=== PATIENT | male | born 1970 | race Caucasian/White ===

== ENCOUNTER 2023-12-10 17:43 | Emergency (ER) | payer MEDICAID, OTHER, SELFPAY ==
[2023-12-10 17:50] VITALS: BP 171/95; PULSE 82; RESP 18; TEMP 36.7; O2SAT 98; BMI 29.5
[2023-12-10 20:09] VITALS: BP 155/95; PULSE 55; RESP 18; O2SAT 99
[2023-12-10 20:42] VITALS: PULSE 73; O2SAT 97
[2023-12-10 20:45] VITALS: BP 155/105; PULSE 74; O2SAT 98
--- NOTE | 2023-12-10 20:59 | ED.EYEPROB ---
HPI - Eye Problem General Chief complaint: Eye Problems Stated complaint: problems with lt eye Time Seen by Provider: 12/10/23 20:10 Source: patient Mode of arrival: Ambulatory History of Present Illness HPI Narrative: 53-year-old male presents for 1 day of left eye redness and purulent drainage. States that began this morning with mild redness, but quickly progressed to crusting discharge. Denies use of glasses or contacts, denies vision changes, denies pain or photophobia Related Data Previous Rx's Medication Instructions Recorded polymyxin B sulfate 10,000 1 drp EYE-LEFT Q3H 7 days #10 mL 12/10/23 unit-trimethoprim 1 mg/mL eye drops Allergies Allergy/AdvReac Type Severity Reaction Status Date / Time No Known Drug Allergies Allergy Verified 12/10/23 17:54 Patient History tobacco type: cigarettes alcohol intake frequency: a few times a week Substance Use Type: marijuana and methamphetamine Exam Initial Vital Signs Initial Vital Signs: Vital Signs Temperature 98.0 F 12/10/23 17:50 Pulse Rate 82 12/10/23 17:50 Respiratory Rate 18 12/10/23 17:50 Blood Pressure 171/95 H 12/10/23 17:50 Pulse Oximetry 98 12/10/23 17:50 Oxygen Delivery Method Room Air 12/10/23 17:50 Const: Awake, alert, no acute distress, nontoxic appearing Eye: PERRL, EOMI, L eye with extensive conjunctival injection and crusting over lashes Skin: Warm, Dry, intact, no rashes Neuro: AO x3, CN II-XII grossly intact, moves all extremities Course Orders Ordered: Discontinued Medications Erythromycin (Erythromycin Ophth 1 Gm Oint) 1 applic EYE-LEFT NOW ONE Stop: 12/10/23 21:01 Last Admin: 12/10/23 21:05 Dose: 1 applic Documented By: HEATH Vital Signs Vital signs: Vital Signs - 8 hr 12/10/23 17:50 12/10/23 20:09 12/10/23 20:42 Temperature 98.0 F Pulse Rate 82 55 L 73 Respiratory Rate 18 18 Blood Pressure 171/95 H 155/95 H Pulse Oximetry 98 99 97 Oxygen Delivery Method Room Air Room Air 12/10/23 20:45 12/10/23 20:45 12/10/23 21:00 Temperature Pulse Rate 74 70 Respiratory Rate Blood Pressure 155/105 H Pulse Oximetry 98 98 Oxygen Delivery Method Room Air 12/10/23 21:01 12/10/23 21:01 Temperature Pulse Rate 74 Respiratory Rate Blood Pressure 167/100 H Pulse Oximetry 98 Oxygen Delivery Method Room Air MDM - Eye Problem Differential Diagnosis Differential diagnosis: Likely corneal abrasion, conjunctivitis and hyphema MDM Narrative Medical decision making narrative: One day of symptoms consistent with bacterial conjunctivitis. No pain or photophobia, eyelids everted, no foreign body seen. Patient given erythromycin ointment tonight and polymyxin drops sent to pharmacy of choice. Patient counseled on the importance of completing therapy and recommended close follow up with eye doctor Discharge Plan Departure Patient Disposition: Home Clinical Impression: Acute bacterial conjunctivitis of left eye Instructions: DI for Conjunctivitis Activity Restrictions/Additional Instructions: You have bacterial conjunctivitis, or pinkeye, in your left eye. Use the erythromycin ointment tonight, tomorrow start taking the antibiotic eyedrops as prescribed. Any time you touch her eyes you need to wash your hands with soap and water. If you notice changes in your vision or worsening despite antibiotic drops you may return to the emergency department for repeat evaluation, however I do highly recommend following up with an eye doctor. Prescriptions: New polymyxin B sulf-trimethoprim 10,000 unit- 1 mg/mL drops 1 drp EYE-LEFT Q3H 7 Days Qty: 10 0RF Stand Alone Forms: Patient Portal/API
[2023-12-10 21:00] VITALS: PULSE 70; O2SAT 98
[2023-12-10 21:01] VITALS: BP 167/100; PULSE 74; O2SAT 98
[2023-12-10] MEDS: ERYTHROMYCIN OPHTH 1 GM OINT 1 APPLIC EYE-LEFT (21:05)
== END 2023-12-10 21:11 | disposition home or self-care (01) ==
PROVIDERS: Emergency Provider Emergency Medicine
DX: H10.32 Unspecified acute conjunctivitis, left eye (principal)
CPT/HCPCS: 99282